=== PATIENT | female | born 1970 | race Caucasian/White ===

== ENCOUNTER 2017-04-15 10:35 | Emergency (ER) | payer MEDICAID, OTHER, SELFPAY ==
[~2017-04-15] VITALS: Ht 162.6 cm; Wt 50.0 kg
[2017-04-15 10:36] VITALS: BP 122/78
[2017-04-15] MEDS ORDERED: HYDR200T PO (11:25)
[2017-04-15] MEDS ORDERED: TOPI100T8 PO (11:25)
== END 2017-04-15 11:29 | disposition home or self-care (01) ==
LOC: ED 11:00
DX: Z76.0 Encounter for issue of repeat prescription (principal); G43.909 Migraine, unspecified, not intractable, without status migrainosus
CPT/HCPCS: 99283

== ENCOUNTER 2017-04-29 11:32 | Emergency (ER) | payer MEDICAID ==
[~2017-04-29] VITALS: Ht 162.6 cm; Wt 49.5 kg
[~2017-04-29 11:32] MED LIST: HYDR200T PO; TOPI100T8 PO
[2017-04-29 15:01] LABS: HEMATOCRIT 39.1 % (34.6-47.8); HEMOGLOBIN 13.1 g/dL (11.7-16.4); WHITE BLOOD COUNT 7.4 x10^3/uL (3.4-10)
[2017-04-29 15:06] LABS: BLOOD UREA NITROGEN 15 mg/dL (7-18)
[2017-04-29 15:09] LABS: ASPARTATE AMINO TRANSFERASE 15 U/L (15-37)
[2017-04-29 15:25] VITALS: BP 103/73
== END 2017-04-29 15:29 | disposition home or self-care (01) ==
LOC: ED 14:13
DX: J20.9 Acute bronchitis, unspecified (principal); B96.89 Other specified bacterial agents as the cause of diseases classified elsewhere; G43.909 Migraine, unspecified, not intractable, without status migrainosus; R10.10 Upper abdominal pain, unspecified; M19.90 Unspecified osteoarthritis, unspecified site; Z90.49 Acquired absence of other specified parts of digestive tract; Z88.5 Allergy status to narcotic agent; Z88.8 Allergy status to other drugs, medicaments and biological substances
CPT/HCPCS: 36415; 71010; 80053; 81003; 85025; 93005

== ENCOUNTER 2017-05-10 03:02 | Emergency (ER) | payer MEDICAID ==
[~2017-05-10] VITALS: Ht 162.6 cm; Wt 49.5 kg
[2017-05-10] MEDS ORDERED: ONDANSETRON 2MG/ML, 2ML IVPush ONE (03:30)
[2017-05-10] MEDS ORDERED: SODIUM CHLORIDE FLUSH 10ML SYR IVF ONE (03:30)
[2017-05-10] MEDS ORDERED: HYDROmorphone 2 MG/ML, 1ML IVPush PRN (03:30)
[2017-05-10] MEDS ORDERED: HYDROmorphone 2 MG/ML, 1ML ONE (03:35)
[2017-05-10] MEDS ORDERED: ONDANSETRON 2MG/ML, 2ML ONE (03:35)
[2017-05-10 03:42] LABS: HEMATOCRIT 38.4 % (34.6-47.8); HEMOGLOBIN 12.9 g/dL (11.7-16.4); WHITE BLOOD COUNT 6.7 x10^3/uL (3.4-10)
[2017-05-10 03:54] LABS: BLOOD UREA NITROGEN 20 mg/dL (7-18)
[2017-05-10 04:01] LABS: ASPARTATE AMINO TRANSFERASE 17 U/L (15-37)
[2017-05-10 04:38] VITALS: BP 102/67
== END 2017-05-10 04:31 | disposition home or self-care (01) ==
LOC: ED 04:25
DX: R10.11 Right upper quadrant pain (principal); G43.909 Migraine, unspecified, not intractable, without status migrainosus; Z90.49 Acquired absence of other specified parts of digestive tract
CPT/HCPCS: 36415; 76700; 80053; 81003; 83690; 84703; 85025; 96374; 96375; 99285; J1170; J2405

== ENCOUNTER 2017-05-30 17:11 | Emergency (ER) | payer MEDICAID | END 2017-05-30 17:24 | disposition left against medical advice (07) | LOC: ED 17:18 | DX: Z53.21 Procedure and treatment not carried out due to patient leaving prior to being seen by health care provider (principal) ==

== ENCOUNTER 2017-08-27 12:04 | Emergency (ER) | payer MEDICAID ==
[~2017-08-27] VITALS: Ht 170.2 cm; Wt 47.3 kg
[~2017-08-27 12:04] MED LIST changes: -HYDR200T PO; +HYDR200T72 PO
[2017-08-27] MEDS ORDERED: KETOROLAC 30 MG/1 ML IM ONE (13:00)
[2017-08-27] MEDS ORDERED: CYCL5TAB PO (13:25)
[2017-08-27] MEDS ORDERED: CEPH-367 PO (13:25)
[2017-08-27] MEDS ORDERED: AMPH12.5 PO (13:25)
[2017-08-27] MEDS ORDERED: PHEN100T90 PO (13:25)
[2017-08-27] MEDS ORDERED: MONT5TAB9 PO (13:25)
[2017-08-27 13:32] LABS: MICROSCOPIC NOT IND
[2017-08-27 13:35] LABS: CULTURE INDICATED? NO
[2017-08-27 15:09] VITALS: BP 123/78
== END 2017-08-27 15:10 | disposition home or self-care (01) ==
LOC: ED 14:20
DX: M25.511 Pain in right shoulder (principal); N39.0 Urinary tract infection, site not specified; M19.90 Unspecified osteoarthritis, unspecified site; G43.909 Migraine, unspecified, not intractable, without status migrainosus
CPT/HCPCS: 81003; 99285

== ENCOUNTER 2018-05-04 15:11 | Emergency (ER) | payer MEDICAID ==
[~2018-05-04] VITALS: Ht 162.6 cm; Wt 49.2 kg
[~2018-05-04 15:11] MED LIST changes: +AMPH12.5 PO; +CEPH-367 PO; +CYCL5TAB PO; +MONT5TAB9 PO; +PHEN100T90 PO
[2018-05-04] MEDS ORDERED: HYDROmorphone 2 MG/ML, 1ML ONE (16:54)
[2018-05-04] MEDS ORDERED: ONDANSETRON ODT 4 MG ONE (16:58)
[2018-05-04] MEDS ORDERED: ONDANSETRON ODT 4 MG PO ONE (17:00)
[2018-05-04] MEDS ORDERED: HYDROmorphone 1 MG/ML, 1ML IM ONE (17:00)
[2018-05-04 17:03] LABS: MICROSCOPIC AUTO
[2018-05-04 17:05] LABS: CULTURE INDICATED? YES
[2018-05-04 17:21] LABS: BASOPHILS # (AUTO) 0.03 x10^3/uL (0-0.1); BASOPHILS % (AUTO) 0 % (0-1); EOSINOPHILS # (AUTO) 0.19 x10^3/uL (0-0.4); EOSINOPHILS % (AUTO) 3 % (1-7); LYMPHOCYTES # (AUTO) 1.64 x10^3/uL (1-3.4); LYMPHOCYTES % (AUTO) 24 % (22-44); MD NO; MEAN CORPUSCULAR HEMOGLOBIN 29.1 pg (27.0-34.8); MEAN CORPUSCULAR HGB CONC 33.8 g/dL (32.4-35.8); MEAN CORPUSCULAR VOLUME 86.1 fL (80-100); MEAN PLATELET VOLUME 8.1 fL (7.4-10.4); MONOCYTES # (AUTO) 0.39 x10^3/uL (0.2-0.8); MONOCYTES % (AUTO) 6 % (2-9); NEUTROPHILS # (AUTO) 4.54 x10^3/uL (1.8-6.8); NEUTROPHILS % (AUTO) 67 % (42-75); PLATELET COUNT 307 x10^3/uL (130-400); RED BLOOD COUNT 4.42 x10^6/uL (3.82-5.3); RED CELL DISTRIBUTION WIDTH 13.4 % (9.6-15.2)
[2018-05-04 17:32] LABS: INTERNATIONAL NORMALIZED RATIO 1.04 (0.93-1.1)
[2018-05-04 17:34] LABS: ALANINE AMINOTRANSFERASE 23 U/L (12-78); ALBUMIN 3.8 g/dL (3.4-5.0); ANION GAP 8 mmol/L (5-15); CALCIUM 8.7 mg/dL (8.5-10.1); CHLORIDE 111 mmol/L (98-107); CREATININE 0.97 mg/dL (0.55-1.02)
[2018-05-04 17:36] LABS: ALKALINE PHOSPHATASE 49 U/L (45-117); BILIRUBIN,TOTAL 0.2 mg/dL (0.2-1.0); TOTAL PROTEIN 6.5 g/dL (6.4-8.2)
[2018-05-04 18:10] VITALS: BP 121/78
[2018-05-04] MEDS ORDERED: CEFTRIAXONE 1,000 MG ONE (19:54)
[2018-05-04] MEDS ORDERED: CEFTRIAXONE 1,000 MG IM ONE (20:00)
[2018-05-04] MEDS ORDERED: DIPHENHYDRAMINE 25 MG CAPSULE ONE (21:30)
[2018-05-04] MEDS ORDERED: DIPHENHYDRAMINE 25 MG CAPSULE PO ONE (21:30)
== END 2018-05-04 21:35 | disposition home or self-care (01) ==
LOC: ED 17:22
DX: M79.662 Pain in left lower leg (principal); N30.00 Acute cystitis without hematuria
CPT/HCPCS: 36415; 73590; 80053; 81001; 85025; 85610; 85730; 87086; 93922; 93926; 93971; 96372; 99284; J0696; J1170; Q0162; Q0163

== ENCOUNTER 2019-04-12 08:49 | Emergency (ER) | payer MEDICAID ==
[~2019-04-12] VITALS: Ht 165.1 cm; Wt 49.5 kg
--- NOTE | 2019-04-12 09:47 | NUR ---
CIRCULATOR: PT TO ROOM FROM LOBBY VIA W/C
--- NOTE | 2019-04-12 09:56 | NUR ---
PATIENT BROUGHT BACK FROM TRIAGE WITH CHIEF COMPLAINT OF PAIN IN LEFT FOOT AND LOWER ABD PAIN. WAS AT [facility] FOR "BLOOD CLOTS IN FEET," HAD "MINOR SURGERY." STATES FOOT IS CURRENLTY COLD. EXPERIENCING PAIN IN GROIN AREA. WAS ON HEPARIN GTT AND RELEASED ON PLAVIX. WAS RELEASED FROM [facility] ON THE . HAS NOT HAD BM FOR 9 DAYS. HURTS TO VOID.
--- NOTE | 2019-04-12 09:59 | NUR ---
X-RAY DELAY PER RN REQUEST
[2019-04-12 10:15] LABS: MICROSCOPIC INDICATED
--- NOTE | 2019-04-12 10:21 | NUR ---
PATIENT BACK IN BED FROM SELF AMBULATION TO BATHROOM.
[2019-04-12 10:37] LABS: CULTURE INDICATED? YES
--- NOTE | 2019-04-12 10:38 | NUR ---
PATIENT BACK FROM IMAGING.
[2019-04-12] MEDS ORDERED: HYDROcodone/APAP 5/325 TABLET ONE (11:20)
[2019-04-12] MEDS ORDERED: HYDROcodone/APAP 5/325 TABLET PO ONE (11:30)
--- NOTE | 2019-04-12 11:53 | NUR ---
PATIENT UPSET WITH ERMD AND POC. PATIENT STATES SHE "HAS AN INFECTION AND IS GOING TO HAVE A SEIZURE" ICT ACCOUNT MANAGER UPDATED.
--- NOTE | 2019-04-12 12:05 | NUR ---
This RN Heating Equipment Installer to ask ED MD Dr. Daugherty to speak with patient regarding physician concern.
--- NOTE | 2019-04-12 12:41 | NUR ---
UNABLE TO LOCATE PULSE WITH DOPPLER- FARZAD UPDATED. Addendum: 04/12/19 at 1355 by [email or web address] FARZAD FOWLER
[2019-04-12 13:02] VITALS: BP 117/65
--- NOTE | 2019-04-12 13:02 | NUR ---
DISCHARGE INSTRUCTIONS REVIEWED.
== END 2019-04-12 13:05 | disposition home or self-care (01) ==
LOC: ED 12:36
DX: G89.29 Other chronic pain (principal); K59.00 Constipation, unspecified; M79.661 Pain in right lower leg; M79.662 Pain in left lower leg
CPT/HCPCS: 74018; 81001; 87086; 99284